=== PATIENT | male | born 1945 | race Caucasian/White ===

== ENCOUNTER 2017-08-14 21:03 | Inpatient (IN) | payer OTHER ==
[~2017-08-14] VITALS: Ht 177.8 cm; Wt 81.6 kg
[~2017-08-14 21:03] MED LIST: ARICEPT10 MG PO; ASPIRIN EC325 MG PO; ATORVASTATIN CA40 MG PO; AUGMENTIN875 MG PO; BENADRYL25 MG PO; ENDOCET 5-3251 EACH PO; Ecotrin PO; FERROCITE324 MG PO; LEVAQUIN750 MG PO; LIPITOR20 MG PO; LISINOPRIL2.5 MG PO; LO-DOSE ASPIRIN81 M1 PO; Lopressor PO; MUCINEX600 MG PO; OMEPRAZOLE20 MG PO; OXYCODONE HCL5 MG PO; PYRIDIUM200 MG PO; Plavix PO; SENNA PLUS TAB1 EACH PO; TYLENOL REGULA325 MG PO; VENTOLIN HFA18 GM IH; XARELTO10 MG PO; Zestril,Prinivil PO
[2017-08-15 11:57] VITALS: BP 103/61
[2017-08-15] MEDS ORDERED: HYDROCODON-ACE1 EAC7 PO (15:25)
[2017-08-15 15:33] LABS: HEMATOCRIT 38.2 % (38.0-50.0); HEMOGLOBIN 12.9 G/DL (12.5-16.6); MCH 32.4 PG (29.0-34.0); MCHC 33.8 G/DL (30.0-36.0); PLATELET COUNT 218 K/uL (156-360); RBC DIS.WIDTH-SD 45.9 % (39-53); RED BLOOD COUNT 3.98 M/uL (4.00-5.50); WHITE BLOOD COUNT 9.7 K/uL (4.1-10.2)
[2017-08-15 15:59] LABS: CHLORIDE 106 MEQ/L (99-109); CREATINE KINASE 107 IU/L (1-294); CREATININE 1.1 MG/DL (0.6-1.3); GFR ESTIMATE (CALCULATED) > 59 mL/min/ (58.99-99999); GLUCOSE 95 mg/dL (70-99); POTASSIUM 4.7 MEQ/L (3.7-5.4); SODIUM 138 MEQ/L (136-147); TOTAL CK 107 IU/L (1-294); UREA NITROGEN (BUN) 15 mg/dL (9-23)
[2017-08-15 16:58] LABS: CK-MB 2.9 ng/mL (0.0-4.9); CKMB RELATIVE INDEX 2.7 (0.0-3.9)
[2017-08-15 17:30] VITALS: BP 103/60
[2017-08-15 19:05] VITALS: BP 89/57
[2017-08-15 21:58] VITALS: BP 85/52; BP 85/54
[2017-08-16 00:42] VITALS: BP 119/71
[2017-08-16 03:25] VITALS: BP 107/53
[2017-08-16 05:40] LABS: HEMATOCRIT 34.4 % (38.0-50.0); HEMOGLOBIN 11.5 G/DL (12.5-16.6); MCH 32.2 PG (29.0-34.0); MCHC 33.4 G/DL (30.0-36.0); MCV 96.4 FL (86-99); PLATELET COUNT 213 K/uL (156-360); RBC DIS.WIDTH-SD 46.2 % (39-53); RED BLOOD COUNT 3.57 M/uL (4.00-5.50)
[2017-08-16 05:54] LABS: CHLORIDE 106 MEQ/L (99-109); CREATINE KINASE 83 IU/L (1-294); CREATININE 1.1 MG/DL (0.6-1.3); GFR ESTIMATE (CALCULATED) > 59 mL/min/ (58.99-99999); GLUCOSE 113 mg/dL (70-99); POTASSIUM 4.3 MEQ/L (3.7-5.4); SODIUM 139 MEQ/L (136-147); TOTAL CK 83 IU/L (1-294); UREA NITROGEN (BUN) 13 mg/dL (9-23)
[2017-08-16 06:40] LABS: CK-MB 2.1 ng/mL (0.0-4.9); CKMB RELATIVE INDEX 2.5 (0.0-3.9)
[2017-08-16 07:24] VITALS: BP 107/59
== END 2017-08-16 10:36 | disposition home or self-care (01) | DRG 269 ==
LOC: ENRESERV 21:03 → 2SOUTH 08-15 11:37 → ENRESERV 08-15 15:13 → 2SOUTH 08-15 15:59 → 4EAST 08-15 17:19 → ENPENDDIS 08-16 → 4EAST 08-16 10:36 → 2SOUTH 08-18 09:01
PROVIDERS: Surgery
DX: I71.4 Abdominal aortic aneurysm, without rupture (principal); I10 Essential (primary) hypertension; I35.0 Nonrheumatic aortic (valve) stenosis; E78.2 Mixed hyperlipidemia; I25.10 Atherosclerotic heart disease of native coronary artery without angina pectoris; Z96.651 Presence of right artificial knee joint; Z96.611 Presence of right artificial shoulder joint; I25.2 Old myocardial infarction; Z95.5 Presence of coronary angioplasty implant and graft; Z79.82 Long term (current) use of aspirin; Z87.891 Personal history of nicotine dependence
CPT/HCPCS: 36415; 80048; 82550; 82553; 85025; 85027; 86850; 86900; 86901; 93005; C1769; C1894; J0461; J0690; J1644; J1650; J2250; J2405; J2720; J3010; J7030; J7120

== ENCOUNTER 2017-08-17 18:59 | Emergency (ER) | payer OTHER ==
[~2017-08-17] VITALS: Ht 177.8 cm; Wt 86.1 kg
[~2017-08-17 18:59] MED LIST changes: +HYDROCODON-ACE1 EAC7 PO
[2017-08-17 19:57] LABS: BASOPHIL (%) 0.4 % (0-1); EOSINOPHIL (%) 2.6 % (0-5); EOSINOPHIL COUNT 0.3 K/uL (0-0.3); HEMATOCRIT 32.6 % (38.0-50.0); HEMOGLOBIN 11.5 G/DL (12.5-16.6); IMMATURE GRANULOCYTE (%) 0.3 % (0.0-0.7); LYMPHOCYTE (%) 16.8 % (15-42); LYMPHOCYTE COUNT 1.8 K/uL (1.0-2.8); MCHC 35.3 G/DL (30.0-36.0); MCV 93.4 FL (86-99); MONOCYTE (%) 12.2 % (3-12); MONOCYTE COUNT 1.3 K/uL (0-0.8); NEUTROPHIL (%) 67.7 % (45-76); NEUTROPHIL COUNT 7.1 K/uL (1.8-6.4); PLATELET COUNT 207 K/uL (156-360); RBC DIS.WIDTH-CV 12.9 % (11.8-14.6); RBC DIS.WIDTH-SD 44.3 % (39-53); RED BLOOD COUNT 3.49 M/uL (4.00-5.50); WHITE BLOOD COUNT 10.4 K/uL (4.1-10.2)
[2017-08-17 20:05] LABS: ALBUMIN 3.7 g/dL (3.2-4.8); CHLORIDE 105 mEq/L (99-109); POTASSIUM 3.7 mEq/L (3.7-5.4); SODIUM 138 mEq/L (136-147)
[2017-08-17 20:08] LABS: GLUCOSE 112 mg/dL (70-99); TOTAL PROTEIN 6.1 g/dL (6.4-8.3)
[2017-08-17 20:11] LABS: ALKALINE PHOSPHATASE 77 IU/L (3-129); GFR ESTIMATE (CALCULATED) > 59 mL/min/ (58.99-99999)
[2017-08-17 20:12] LABS: UREA NITROGEN (BUN) 11 mg/dL (9-23)
[2017-08-17 20:13] LABS: AST (GOT) 13 IU/L (2-34)
[2017-08-17 20:14] LABS: ALT (GPT) 6 IU/L (3-49)
[2017-08-17 21:00] LABS: APPEARANCE CLEAR ((CLEAR)); BILIRUBIN NEGATIVE; BLOOD NEGATIVE; COLOR YELLOW ((YELLOW)); GLUCOSE (STRIP) NEGATIVE; KETONES NEGATIVE; LEUKOCYTES NEGATIVE; NITRITE NEGATIVE; PROTEIN (STRIP) NEGATIVE; SPECIFIC GRAVITY 1.023 (1.000-1.030); UCUL ADDED? NO
[2017-08-17 21:55] VITALS: BP 106/66
== END 2017-08-17 21:56 | disposition home or self-care (01) ==
LOC: EME 18:59
PROVIDERS: Emergency Medicine
DX: R50.9 Fever, unspecified (principal); Z98.890 Other specified postprocedural states; I25.2 Old myocardial infarction; Z95.5 Presence of coronary angioplasty implant and graft; Z79.82 Long term (current) use of aspirin; Z88.2 Allergy status to sulfonamides; Z87.891 Personal history of nicotine dependence
CPT/HCPCS: 71046; 80053; 81003; 83605; 85025; 87040; 99281; 99284